=== PATIENT | female | born 1950 | race Caucasian/White ===

== ENCOUNTER → 2021-12-10 | Outpatient (CLI) | payer MEDICARE ==
--- NOTE | 2021-12-10 22:40 | MR ---
EXAMINATION TYPE: MR knee RT wo con DATE OF EXAM: 12/10/2021 COMPARISON: Outside right knee x-ray November 22, 2021 HISTORY: Right knee pain, locking and swelling. No injury TECHNIQUE: Multiplanar, multisequence imaging of the right knee is performed without IV contrast. FINDINGS: MEDIAL MENISCUS: Abnormal signal central body with fraying extends to articular surface. LATERAL MENISCUS: Anterior and posterior horns are intact without tear. CRUCIATE LIGAMENTS: The anterior and posterior cruciate ligaments are intact and unremarkable. COLLATERAL LIGAMENTS: The medial collateral ligament and lateral collateral ligament complex are inta ct. Abnormal fluid surrounds medial collateral ligament. EXTENSOR MECHANISM: Visualized quadriceps and patellar tendons are intact. EFFUSION: Small suprapatellar joint effusion. POPLITEAL CYST: Small popliteal/rosales cyst extends medially. TRICOMPARTMENT SPACES: [id number] tricompartment joint space loss and spurring. CARTILAGE: Thinning of articular cartilage medial tibiofemoral compartment. BONE MARROW SIGNAL: No focal abnormal marrow signal is appreciated. OTHER: No additional significant abnormality is appreciated. IMPRESSION: 1. Full-thickness tear medial meniscus centered at the central body. 2. Mild to moderate tricompartment degenerative changes as detailed above. 3. Grade 1 MCL sprain injury. 4. Small suprapatellar joint effusion. 5. Small popliteal cyst.
--- NOTE | 2021-12-11 08:16 | CT ---
EXAMINATION TYPE: CT abdomen w con DATE OF EXAM: 12/10/2021 COMPARISON: None HISTORY: ABD PAIN CT DLP: 669.7 mGycm CONTRAST: CT scan of the abdomen and pelvis is performed with Oral Contrast and with IV Contrast, patient injec deonte with 100 mL of Isovue 300. FINDINGS: LUNG BASES-: No visible nodule. No infiltrate. Small fixed hiatal hernia. LIVER/GB: No calcified gallstones. No space occupying hepatic lesion. Biliary tree is of normal ca liber. PANCREAS: No inflammation. No distinct mass. SPLEEN: No splenic enlargement. No lesion seen. ADRENALS: No nodule. No thickening. KIDNEYS/BLADDER: No hydronephrosis. No nephrolithiasis. Simple cyst left kidney measuring 3.6 cm. N o solid renal masses identified. Urinary bladder grossly unremarkable. BOWEL: The visualized gastrointestinal tract is of normal caliber. No inflammatory process seen. Post operative changes with surgical sutures seen about the mid small bowel. LYMPH NODES: No greater than 1cm abdominal or pelvic lymph nodes are appreciated. AORTA: No significant abnormality. OSSEOUS STRUCTURES: No significant abnormality is seen. OTHER: No significant additional abnormality is seen. IMPRESSION: 1. No significant abnormality to account for the patient's symptoms.
== END | disposition home or self-care (01) ==
LOC: RADMRIMAIN 16:12
PROVIDERS: ATTEND Orthopaedic Surgery
DX: S83.241A Other tear of medial meniscus, current injury, right knee, initial encounter (principal); M17.11 Unilateral primary osteoarthritis, right knee; S83.411A Sprain of medial collateral ligament of right knee, initial encounter; M71.21 Synovial cyst of popliteal space [Baker], right knee; R10.9 Unspecified abdominal pain
CPT/HCPCS: 74160; 36415; 73721; Q9967

== ENCOUNTER → 2021-12-10 | Outpatient (CLI) | payer MEDICARE | END | disposition home or self-care (01) | LOC: RADCTMAIN 16:11 | PROVIDERS: ATTEND Family Medicine | DX: R10.12 Left upper quadrant pain (principal) | CPT/HCPCS: 82565; 84520 ==

== ENCOUNTER 2022-12-26 14:20 | Observation (INO) | payer MEDICARE ==
--- NOTE | 2022-12-26 14:47 | ED ---
Chest Pain HPI - General Chief Complaint: Chest Pain Stated Complaint: Chest Pain Time Seen by Provider: 12/26/22 14:22 Source: patient, EMS, RN notes reviewed, old records reviewed Mode of arrival: EMS Limitations: no limitations - History of Present Illness Initial Comments: This is a 72-year-old female DF for evaluation chest pain chest pain is started around 1:00 today. Patient has no travel history sick contacts was told to come the emergency department if she ever had similar chest pain. Patient has had no prior cardiac evaluation no prior heart disease history. No high blood pressure cholesterol no diabetes nonsmoker. patient has no current fever cough or congestion. does have continued pain here in the er MD Complaint: chest pain -: hour(s) Onset: during rest, during exertion Pain Location: substernal, left chest Pain Radiation: none Severity: moderate Severity scale (1-10): 4 Quality: tightness, heaviness Consistency: intermittent Improves With: nothing Worsens With: nothing Treatments Prior to Arrival: none - Related Data Home Medications Medication Instructions Recorded Confirmed FLUoxetine HCL 40 mg PO DAILY 12/26/22 12/26/22 Omeprazole 20 mg PO DAILY 12/26/22 12/26/22 Pravastatin Sodium [Pravachol] 80 mg PO DAILY 12/26/22 12/26/22 Rivastigmine Tartrate [Exelon] 1.5 mg PO BID 12/26/22 12/26/22 Allergies Allergy/AdvReac Type Severity Reaction Status Date / Time ibuprofen Allergy Chest Pain Verified 12/26/22 15:31 Review of Systems ROS Statement: Those systems with pertinent positive or pertinent negative responses have been documented in the HPI. ROS Other: All systems not noted in ROS Statement are negative. EKG Findings - EKG Comments: EKG Findings:: Dizzy is bradycardia 47 ME 183 QRS 93 QTc 512 Past Medical History Additional Past Medical History / Comment(s): bowel issue - exploratory laparotomy performed. (1972) History of Any Multi-Drug Resistant Organisms: None Reported Additional Past Surgical History / Comment(s): (1972) Exploratory Laparotomy. No bowel removed. Smoking Status: Never smoker Past Alcohol Use History: None Reported Past Drug Use History: None Reported General Exam Limitations: no limitations General appearance: alert, in no apparent distress Head exam: Present: atraumatic, normocephalic, normal inspection Eye exam: Present: normal appearance, PERRL, EOMI. Absent: scleral icterus, conjunctival injection, periorbital swelling ENT exam: Present: normal exam, mucous membranes moist Neck exam: Present: normal inspection. Absent: tenderness, meningismus, lymphadenopathy Respiratory exam: Present: normal lung sounds bilaterally. Absent: respiratory distress, wheezes, rales, rhonchi, stridor Cardiovascular Exam: Present: regular rate, normal rhythm, normal heart sounds. Absent: systolic murmur, diastolic murmur, rubs, gallop, clicks GI/Abdominal exam: Present: soft, normal bowel sounds. Absent: distended, tenderness, guarding, rebound, rigid Extremities exam: Present: normal inspection, full ROM, normal capillary refill. Absent: tenderness, pedal edema, joint swelling, calf tenderness Back exam: Present: normal inspection Neurological exam: Present: alert, oriented X3, CN II-XII intact Psychiatric exam: Present: normal affect, normal mood Skin exam: Present: warm, dry, intact, normal color. Absent: rash Course Vital Signs 12/26/22 14:23 Temperature 97.0 F L Pulse Rate 47 L Respiratory 16 Rate Blood Pressure 134/92 O2 Sat by Pulse 97 Oximetry - Reevaluation(s) Reevaluation #1: 12/26/22 17:02 Medical record is reviewed Reevaluation #2: 12/26/22 17:02 Patient still with chest pain here in the ER Reevaluation #3: 12/26/22 17:02 Patient informed of results questions answered Reevaluation #4: 12/26/22 17:02 Was pt. sent in by a medical professional or institution? @ -no Did you speak to anyone other than the patient for history? @ -no Did you review nursing and triage notes? @ -agree Were old charts reviewed? @ -no Differential Diagnosis? @ -prior EKG interpreted by me (3pts min.)? @ -yes X-rays interpreted by me (1pt min.)? @ -yes CT interpreted by me (1pt min.)? @ -no U/S interpreted by me (1pt. min.)? @ -no What testing was considered but not performed? (CT, X-rays, U/S, labs)? Why? @ -no What meds were considered but not given? Why? @ -no Did you discuss the management of the patient with other professionals? @ -no Did you reconcile home meds? @ -no Was smoking cessation discussed for >3mins.? @ -no Was critical care preformed (if so, how long)? @ -no Were there social determinants of health that impacted care today? How? (Homelessness, low income, unemployed, alcoholism, drug addiction, transportation, low edu. Level, literacy, decrease access to med. care, nursing home, rehab)? @ -no Was there de-escalation of care discussed even if they declined? (Discuss DNR or withdrawal of care, Hospice)? @ -no What co-morbidities impacted this encounter? (DM, HTN, Smoking, COPD, CAD, Cancer, CVA, Hep., AIDS, mental health diagnosis, sleep apnea, morbid obesity)? @ -none Was patient admitted / discharged? @ -dc Undiagnosed new problem with uncertain prognosis? @ -no Drug Therapy requiring intensive monitoring for toxicity (Heparin, Nitro, Insulin, Cardizem)? @ -no Were any procedures done? @ -no Diagnosis/symptom? @ -] Acute, or Chronic, or Acute on Chronic? @ -no Uncomplicated (without systemic symptoms) or Complicated (systemic symptoms)? @ -uncomplicated Side effects of treatment? @ -no Exacerbation, Progression, or Severe Exacerbation] @ -no Poses a threat to life or bodily function? @ -no Reevaluation #5: 12/26/22 17:02 Differential Chest Pain: Stable Angina, Unstable Angina, STEMI, NSTEMI Aortic Dissection, Pneumothorax, Musculoskeletal, Esophageal Spasm GERD, Cholecystitis, Pancreatitis, Zoster, this is not meant to be an all-inclusive list. - Consultations Consultation #1: spoke w sound and good for admission Chest Pain MDM - MDM 72 female to the Er for evaluation chest pain, patient will be admitted for chest pain observation and for cardiology to see and treat Disposition Clinical Impression: Chest pain Disposition: ADMITTED IP TO THIS HOSP Condition: Undetermined Is patient prescribed a controlled substance at d/c from ED?: No Referrals: Mirna Burgos MD [Primary Care Provider] - 1-2 days Time of Disposition: 17:00
--- NOTE | 2022-12-26 15:16 | XR ---
EXAMINATION TYPE: XR chest 2V DATE OF EXAM: 12/26/2022 COMPARISON: None HISTORY: 72 year-old female chest pain and weakness TECHNIQUE: PA and lateral views FINDINGS: Heart upper limits of normal in size. Tortuous/ectatic thoracic aorta. 8 mm nodule lateral right apex . Some stringy atelectasis in the lower lungs. Hyperinflation. Otherwise, no consolidation or pleural effusion. IMPRESSION: 1. COPD and borderline heart size. 2. Ectatic/tortuous thoracic aorta. 3. Possible underlying 8 mm pulmonary nodule at the lateral right apex. Nonemergent follow-up CT ches t to exclude a suspicious pulmonary nodule.
[2022-12-26 15:21] LABS: Basophils % (A) 0 %; Eosinophils # (A) 0.1 k/uL (0-0.7); Eosinophils % (A) 2 %; HCT 40.1 % (34.0-46.0); HGB 13.3 gm/dL (11.4-16.0); Lymphocytes # (A) 1.7 k/uL (1.0-4.8); Lymphocytes % (A) 28 %; MCH 29.1 pg (25.0-35.0); MCHC 33.2 g/dL (31.0-37.0); MCV 87.9 fL (80.0-100.0); Mean Platelet Volume 7.6; Monocytes # (A) 0.2 k/uL (0-1.0); Monocytes % (A) 4 %; Neutrophils # (A) 3.9 k/uL (1.3-7.7); Neutrophils % (A) 63 %; Platelet Count 270 k/uL (150-450); RBC 4.57 m/uL (3.80-5.40); RDW 13.5 % (11.5-15.5); WBC 6.1 k/uL (3.8-10.6)
[2022-12-26 15:22] LABS: ALT 13 U/L (4-34); AST 21 U/L (14-36); African American GFR (CKD) >90 (>60 ml/min/1.73 sqM); Albumin 4.2 g/dL (3.5-5.0); Alkaline Phosphatase 81 U/L (38-126); Anion Gap 9 mmol/L; Blood Urea Nitrogen 16 mg/dL (7-17); Calcium 8.7 mg/dL (8.4-10.2); Carbon Dioxide 24 mmol/L (22-30); Chloride 102 mmol/L (98-107); Glucose 87 mg/dL (74-99); Magnesium 2.1 mg/dL (1.6-2.3); Non-African American GFR(CKD) 84 (>60 ml/min/1.73 sqM); Phosphorus 3.7 mg/dL (2.5-4.5); Potassium 4.4 mmol/L (3.5-5.1); Sodium 135 mmol/L (137-145); Total Bilirubin 0.7 mg/dL (0.2-1.3); Total Protein 7.1 g/dL (6.3-8.2)
[2022-12-26 15:55] LABS: Partial Thromboplastin Time 24.3 sec (22.0-30.0); Prothrombin Time 10.3 sec (9.0-12.0)
[2022-12-26] MEDS ORDERED: ONDANSETRON 4 MG/2 ML VIAL IVP PRN (17:00)
[2022-12-26] MEDS ORDERED: MORPHINE SULFATE 4 MG/ML SYRINGE IV PRN (17:00)
[2022-12-26] MEDS ORDERED: NALOXONE 0.4 MG/ML 1 ML VIAL IV PRN (17:00)
[2022-12-26] MEDS ORDERED: DONEPEZIL 10 MG TAB PO SCH (21:00)
[2022-12-26] MEDS ORDERED: DONEPEZIL 5 MG TAB PO SCH (21:00)
--- NOTE | 2022-12-27 01:20 | P.HPIM ---
History of Present Illness H&P Date: 12/26/22 Chief Complaint: chest pain 72 year old female with no significant past medical history patient experienced sudden onset chest pain today , described as pressure heavy sensation central chest 4/10 in severity , non radiating associated with some dizziness. no associated nausea, vomiting, SOB, or profuse sweating. no injury to the chest , no recent travel or hospital stay , no cardiac history , no history of blood clots. no URI symptoms, no known sick contacts. denies tobacco smoking or illicit drugs , denies heavy alcohol consumption Review of Systems Pertinent positives as noted in HPI. All other systems were reviewed and are negative Past Medical History Additional Past Medical History / Comment(s): bowel issue - exploratory laparotomy performed. (1972) states 1 and a c-sections repair, and hernia fixed History of Any Multi-Drug Resistant Organisms: None Reported Additional Past Surgical History / Comment(s): (1972) Exploratory Laparotomy. No bowel removed. Smoking Status: Never smoker Past Alcohol Use History: None Reported Past Drug Use History: None Reported Medications and Allergies Home Medications Medication Instructions Recorded Confirmed Type FLUoxetine HCL 40 mg PO DAILY 12/26/22 12/26/22 History Omeprazole 20 mg PO DAILY 12/26/22 12/26/22 History Pravastatin Sodium [Pravachol] 80 mg PO DAILY 12/26/22 12/26/22 History Rivastigmine Tartrate [Exelon] 1.5 mg PO BID 12/26/22 12/26/22 History Allergies Allergy/AdvReac Type Severity Reaction Status Date / Time ibuprofen Allergy Chest Pain Verified 12/26/22 15:31 Physical Exam Vitals: Vital Signs Temp Pulse Resp BP Pulse Ox 12/26/22 18:38 98.2 F 55 L 18 148/96 97 12/26/22 14:23 97.0 F L 47 L 16 134/92 97 Intake and Output 12/26/22 12/26/22 12/26/22 06:59 14:59 22:59 Other: Weight 70.307 kg 70.307 kg Constitutional: No acute distress, conversant, pleasant Eyes: Anicteric sclerae, moist conjunctiva, Pupils equal round reactive to light ENMT: NC/AT Oropharynx clear, no erythema, or exudates Neck: Supple, no masses, or JVD No carotid bruits No thyromegaly Lungs: Clear to auscultation Clear to percussion Normal respiratory effort, no accessory muscle use Cardiovascular: Heart regular in rate and rhythm, No murmurs, gallops, or rubs No peripheral edema Abdominal: Soft Nontender, no guarding, rebound or rigidity Abdomen moving with respiration Normoactive bowel sounds No hepatomegaly, No splenomegaly No palpable mass No abdominal wall hernia noted Skin: Normal temperature, tone, texture, turgor No induration No subcutaneous nodules No rash, lesions No ulcers Extremities: No digital cyanosis No clubbing Pedal pulses intact and symmetrical Radial pulses intact and symmetrical No calf tenderness Psychiatric: Alert and oriented to person, place and time Appropriate affect Neuro Muscles Strength 5/5 in all 4 extremities Sensation to light touch grossly present throughout Cranial nerves II-XII grossly intact Lymphatics: no palpable cervical or supraclavicular lymph nodes Results CBC & Chem 7: 12/26/22 14:49 12/26/22 14:49 Labs: Abnormal Lab Results - Last 24 Hours (Table) 12/26/22 Range/Units 14:49 Sodium 135 L (137-145) mmol/L Thrombosis Risk Factor Assmnt - Choose All That Apply Each Factor Represents 1 point: Obesity (BMI >25) Each Risk Factor Represents 2 Points: Age 61-74 years Thrombosis Risk Factor Assessment Total Risk Factor Score: 3 Thrombosis Risk Factor Assessment Level: Moderate Risk Assessment and Plan Assessment: 72 year old female with no significant past medical history , presented with sudden onset chest pain , I discussed the case with ED doc, patient EKG shows diffuse T wave inversions, I accepted the admission for cardiac workup with anticipated length of stay < 2 midnights atypical chest pain EKG showing diffuse T wave inversion trops negative patient allergic to NSAIDs , no aspirin given pain control with nitro PRN morphine PRN for pain control cardiology consult trend trops check lipid panel , and TSH monitor vital signs finance director blood work reviewed , unremarkable Hgb 13.3 , WBC 6.1 , Na 135, K 4.1 , BN 16 , cr 0.72 full code DVT PPX heparin sc tid 5000 units
[2022-12-27] MEDS ORDERED: HEPARIN SODIUM,PORCINE 10,000 UNIT in SODIUM CHLORIDE 0.9% 1,000 ML IRRIGATION PRN (07:00)
[2022-12-27] MEDS ORDERED: HEPARIN SODIUM,PORCINE 2,500 UNIT in SODIUM CHLORIDE 0.9% 250 ML IRRIGATION PRN (07:00)
[2022-12-27] MEDS ORDERED: PRAVASTATIN SODIUM 80 MG TAB PO SCH (09:00)
[2022-12-27] MEDS ORDERED: PANTOPRAZOLE 40 MG TABLET PO SCH (09:00)
[2022-12-27] MEDS ORDERED: FLUoxetine HCL 20 MG CAP PO SCH (09:00)
[2022-12-27 11:08] LABS: Chol/HDL Ratio 2.13 Ratio; LDL Cholesterol,Calculated 70.1 mg/dL (0.0-131.0); VLDL Calculation 15.98 mg/dL (5.00-40.00)
[2022-12-27] MEDS ORDERED: ALPRAZolam 0.25 MG TAB PO PRN (11:31)
[2022-12-27] MEDS ORDERED: NITROGLYCERIN SL TABS 0.4 MG TAB SUBLINGUAL PRN (11:31)
[2022-12-27] MEDS ORDERED: ASPIRIN 325 MG TAB PO STA (11:31)
[2022-12-27] MEDS ORDERED: ATORVASTATIN 80 MG TAB PO STA (11:31)
[2022-12-27] MEDS ORDERED: ALPRAZolam 0.5 MG TAB PO PRN (11:31)
[2022-12-27] MEDS ORDERED: VERAPAMIL 2.5 MG/ML 2 ML AMP ONE (11:50)
[2022-12-27] MEDS ORDERED: HEPARIN SODIUM 1,000 UN/ML (10ML VL) ONE (11:50)
[2022-12-27] MEDS ORDERED: fentaNYL (PF) 50 MCG/ML 2 ML AMP ONE (11:50)
[2022-12-27] MEDS ORDERED: SODIUM CHLORIDE 0.9% 1,000 ML IV ONE (12:07)
[2022-12-27] MEDS ORDERED: fentaNYL (PF) 50 MCG/ML 2 ML AMP IV ONE (12:12)
[2022-12-27] MEDS ORDERED: LIDOCAINE 1% INJ 10MG/ML (5 ML VIAL-PF) SQ ONE (12:16)
[2022-12-27] MEDS ORDERED: HEPARIN SODIUM 1,000 UN/ML (10ML VL) IV ONE (12:22)
[2022-12-27] MEDS ORDERED: IOPAMIDOL-250 100ML BTL INTRAARTER ONE (12:29)
[2022-12-27] MEDS ORDERED: RX INFO: IV CONTRAST WAS GIVEN 1 EACH MISC MISCELLANE PRN (12:34)
[2022-12-27] MEDS ORDERED: ONDANSETRON 4 MG/2 ML VIAL ONE (12:39)
[2022-12-27] MEDS ORDERED: ONDANSETRON 4 MG/2 ML VIAL IVP ONE (12:40)
--- NOTE | 2022-12-27 12:40 | P.CARDCATH ---
Date of Procedure: 12/27/22 Description of Procedure: Cardiac Catheterization: The patient is a 72-year-old female who presented with symptoms of chest discomfort and an abnormal EKG. She had no enzymatic changes. She was evaluated by Dr. Vazquez Recommendations were made regarding cardiac catheterization, the risks and the complications were discussed with the patient who is in full understanding and agreement. Procedure Description: Patient was brought to biological lab technician in fasting semi-sedated state after receiving Fentanyl and Benadryl achieiving moderate conscious sedated state. Using Xylocaine Anesthesia and Seldinger technique, a 6-Cambodian sheath was introduced in the right radial artery . Subsequently, selective coronary angiography was performed using a 5-Cambodian 3.5 bend Chin catheter. Multiple views of the coronary artery including hemiaxial views were obtained. The 5-Cambodian pigtail catheter was used to cross the aortic valve and LVEDP was calculated. Following that, catheter and sheath were removed. Hemostasis was obtained with deployment of TR band . There was no immediate complication. Patient was returned to room in stable condition. Of note, the patient received a total of 3500 units of intravenous heparin as well as intra-arterial verapamil. Findings: Left main: This is a large size vessel, bifurcating into LAD and left circumflex, left main has no high-grade stenosis LAD: This is a large size vessel, giving rise to a large proximal diagonal branch, reaching to the inferoapical wall. The mid LAD has mild 10-20% plaque with no progression since 2012 Left circumflex: This is a nondominant vessel, large in caliber, giving rise to a large obtuse marginal branch that has no evidence of high-grade stenosis RCA: This is a nondominant vessel, moderate caliber giving rise to a right PDA that has no evidence of high-grade stenosis Left Ventriculogram: Not performed Hemodynamics: There was no gradient across the aortic valve , LVEDP was 8-10 mmHg Conclusion: 1. Mild disease in the mid LAD 2. No obstructive disease in the RCA and left circumflex 3. Right dominance 4. Normal LVEDP Recommendations: In view of the findings I have recommended to continue medical therapy with coronary risks modifications. The findings and the recommendations were discussed with the patient and she was in full understanding and agreement. Duration of sedation is 15 minutes.
[2022-12-27] MEDS ORDERED: SODIUM CHLORIDE 0.9% 1,000 ML IV SCH (12:45)
--- NOTE | 2022-12-27 13:33 | P.PN ---
Subjective Progress Note Date: 12/27/22 Hospital Course: 72-year-old female with history of GERD, dyslipidemia depression and dementia presenting with chest pain. EKG on admission showed diffuse T-wave inversions. Hemoglobin 13.3, WBC 6.1, sodium 135, creatinine 0.72. Chest pain has now resolved. Cardiology consulted. Troponin has been negative. Subjective: Patient seen and examined at bedside. No acute events overnight. Denies any further chest pain. Pertinent positives and negatives as discussed above, a complete review of systems was performed and all other systems are negative. Vitals Signs Reviewed. General: nontoxic, no distress, appears at stated age Derm: warm, dry Head: atraumatic, normocephalic, symmetric Eyes: EOMI, no lid lag, anicteric sclera Mouth: no lip lesion, mucus membranes moist Cardiovascular: S1S2 reg, no murmur Lungs: CTA bilateral, no rhonchi, no rales , no accessory muscle use Abdominal: soft, nontender to palpation, no guarding, no appreciable organomegaly Ext: no gross muscle atrophy, no edema, no contractures Neuro: CN II-XI grossly intact, no focal neuro deficits Psych: Alert, oriented, appropriate affect Data Reviewed Today: Pertinent Labs: Troponin negative 3 Assessment and Plan: Atypical chest pain, rule out ACS Mild coronary artery disease Depression Dementia/GERD -Catheterization report reviewed, mild disease in the mid LAD, no obstructive disease and RCA and left circumflex, normal LVEDP. -Continue aspirin and statin daily -Pending echocardiogram -A1c pending DVT ppx: subq heparin Code status: full code Anticipated discharge place: Pending clinical course Anticipated discharge time: pending clinical course Objective - Vital Signs Vital signs: Vital Signs Temp 97.9 F 12/27/22 13:00 Pulse 58 L 12/27/22 13:00 Resp 16 12/27/22 13:00 BP 142/78 12/27/22 13:00 Pulse Ox 95 12/27/22 13:00 FiO2 Intake & Output 12/26/22 12/27/22 12/27/22 18:59 06:59 18:59 Intake Total 100 Balance 100 Weight 70.307 kg 70.307 kg Intake: IV 100 Other: # Voids 1 - Labs CBC & Chem 7: 12/26/22 14:49 12/26/22 14:49 Labs: Abnormal Lab Results - Last 24 Hours (Table) 12/26/22 12/26/22 Range/Units 14:49 14:49 Sodium 135 L (137-145) mmol/L HDL Cholesterol 75.90 H (40.00-60.00) mg/dL
--- NOTE | 2022-12-27 13:53 | CA ---
Transthoracic Echo Report Name: Linda Schaefer Age: 72 Gender: F : 1950 Exam Date: 12/27/2022 13:26 Exam Location: [facility] Ht (in): 61 Wt (lb): 155 Ordering Physician: Jose Vazquez MD ([id number]) Attending/Referring Phys: George RODRIGES Hand Winder Tari Cabrera RDCS Procedure CPT: Indications: LVF Cardiac Hx: Technical Quality: Good Contrast 1: Total Dose (mL): Contrast 2: Total Dose (mL): MEASUREMENTS (Male / Female) Normal Values 2D ECHO LV Diastolic Diameter PLAX 5.0 cm 4.2 - 5.9 / 3.9 - 5.3 cm LV Systolic Diameter PLAX 3.2 cm IVS Diastolic Thickness 1.3 cm 0.6 - 1.0 / 0.6 - 0.9 cm LVPW Diastolic Thickness 1.2 cm 0.6 - 1.0 / 0.6 - 0.9 cm LV Relative Wall Thickness 0.5 RV Internal Dim ED PLAX 3.1 cm LA Systolic Diameter LX 4.2 cm 3.0 - 4.0 / 2.7 - 3.8 cm LA Volume 46.4 cm??? 18 - 58 / 22 - 52 cm??? M-MODE Aortic Root Diameter MM 3.1 cm MV E Point Septal Separation 0.4 cm AV Cusp Separation MM 2.5 cm DOPPLER AV Peak Velocity 131.0 cm/s AV Peak Gradient 6.9 mmHg MV Area PHT 3.1 cm??? Mitral E Point Velocity 77.3 cm/s Mitral A Point Velocity 73.0 cm/s Mitral E to A Ratio 1.1 MV Deceleration Time 244.8 ms MV E' Velocity 6.1 cm/s Mitral E to MV E' Ratio 12.7 FINDINGS Left Ventricle Left ventricular ejection fraction is estimated at 55-60 %. Left ventricular cavity size normal. Mild concentric left ventricular hypertrophy. Right Ventricle Normal right ventricular size and function. Unable to estimate the right ventricular systolic pressure. Right Atrium Normal right atrial size. Left Atrium Normal left atrial size. Mitral Valve Mitral valve thickened. Mild mitral annular calcification. Aortic Valve Trileaflet aortic valve. No aortic valve stenosis or regurgitation. Tricuspid Valve Structurally normal tricuspid valve. No tricuspid regurgitation. Pulmonic Valve Structurally normal pulmonic valve. No pulmonic regurgitation. Pericardium Normal pericardium. No pericardial effusion. Aorta Normal size aortic root and proximal ascending aorta. CONCLUSIONS Mild concentric left ventricular hypertrophy with normal LV systolic function Previewed by: Dr. Jose Vazquez MD (Electronically Signed) Final Date: 27 Dec 2022 13:53
--- NOTE | 2022-12-27 14:19 | CONS ---
CONSULTATION CHIEF COMPLAINT: Chest pain. HISTORY OF PRESENT ILLNESS: Linda is a 72-year-old lady, with history of dyslipidemia, who presented to hospital complaining of chest pain. She states that she was sitting on the porch and suddenly started having precordial chest pressure on the left side with left arm radiation. She looked somewhat pale and diaphoretic. EMS was called and she was brought to the emergency room where she had an EKG that revealed sinus rhythm with ST-T wave changes suggestive of lateral wall ischemia and had 3 sets of troponins that have all been negative. Her lipid profile shows an LDL cholesterol of 70. At the time of my evaluation this morning, she appears comfortable at rest and is free of symptoms. Given the significant EKG changes and chest discomfort suggestive of unstable angina, I advised the patient to undergo cardiac catheterization for further evaluation. She had been explained of risks, benefits, and alternatives - understood and accepted. PAST MEDICAL HISTORY: Significant for dyslipidemia. CURRENT MEDICATIONS: Include: 1. Pravachol. 2. Exelon. 3. Omeprazole. 4. Fluoxetine. ALLERGIES: Allergic to ibuprofen. FAMILY HISTORY: Negative for premature coronary artery disease. SOCIAL HISTORY: Negative for smoking, EtOH abuse, or drug abuse. REVIEW OF SYSTEMS: review of systems has been performed. Pertinent are as documented. PHYSICAL EXAMINATION: VITAL SIGNS: The patient is afebrile. Heart rate is 50 beats per minute. Blood pressure is 140/82. Respiratory rate 16. O2 saturation 96% on room air. NECK: There is no jugular venous distention. Carotid upstroke is normal. There is no bruit. CHEST: Exam reveals good air entry bilaterally. HEART: Exam reveals first and second heart sounds. No gallop. No murmur. ABDOMEN: Soft, nontender. EXTREMITIES: Did not reveal any edema. Peripheral pulses are felt. LABORATORY DATA: Labs show that the hemoglobin is 13.3, platelet count is 270, creatinine 0.7, potassium is 4.4. Troponins are negative. ASSESSMENT AND PLAN: Unstable angina. PLAN: The patient will undergo cardiac catheterization by Dr. Mckeon who sees her regularly. MMODL / IJN: [id number] /
--- NOTE | 2022-12-27 16:50 | P.DS ---
Providers Date of admission: 12/26/22 17:00 Expected date of discharge: 12/27/22 Attending physician: Marlene Sandoval MD Consults: 12/26/22 17:00 Consult Physician Routine Consulting Provider: Jose Mckeon Consult Reason/Comments: cp Do you want consulting provider notified?: Yes Primary care physician: [facility] Course: Discharge Diagnosis: Atypical chest pain Mild coronary artery disease Depression Dementia/GERD Hospital Course: 72-year-old female with history of GERD, dyslipidemia depression and dementia presenting with chest pain. EKG on admission showed diffuse T-wave inversions. Hemoglobin 13.3, WBC 6.1, sodium 135, creatinine 0.72. Chest pain has now resolved. Cardiology consulted. Troponin has been negative. Catheterization shows mild disease in the mid LAD, no obstructive disease and RCA and left circumflex, normal LVEDP. She is on aspirin and statin. Echocardiogram showed LVEF 55-60%. Patient seen and examined at bedside. Vital signs reviewed and stable. General: nontoxic, no distress, appears at stated age Derm: warm, dry Head: atraumatic, normocephalic, symmetric Eyes: EOMI, no lid lag, anicteric sclera Mouth: no lip lesion, mucus membranes moist Cardiovascular: S1S2 reg, no murmur Lungs: CTA bilateral, no rhonchi, no rales , no accessory muscle use Abdominal: soft, nontender to palpation, no guarding, no appreciable organomegaly Ext: no gross muscle atrophy, no edema, no contractures Neuro: CN II-XI grossly intact, no focal neuro deficits Psych: Alert, oriented, appropriate affect A total of 33 minutes of time were spent preparing this complex discharge summary. Patient was discharged on 12/27/22 at 16:49. Patient Condition at Discharge: Stable Plan - Discharge Summary New Discharge Prescriptions: New Aspirin 81 mg PO DAILY #90 tab Continue Omeprazole 20 mg PO DAILY FLUoxetine HCL 40 mg PO DAILY Rivastigmine Tartrate [Exelon] 1.5 mg PO BID Pravastatin Sodium [Pravachol] 80 mg PO DAILY Discharge Medication List FLUoxetine HCL 40 mg PO DAILY 12/26/22 [History] Omeprazole 20 mg PO DAILY 12/26/22 [History] Pravastatin Sodium [Pravachol] 80 mg PO DAILY 12/26/22 [History] Rivastigmine Tartrate [Exelon] 1.5 mg PO BID 12/26/22 [History] Aspirin 81 mg PO DAILY #90 tab 12/27/22 [Rx] Follow up Appointment(s)/Referral(s): Jose Mckeon MD [STAFF PHYSICIAN] - 2 Weeks Mirna Burgos MD [Primary Care Provider] - 1-2 days Patient Instructions/Handouts: Chest Pain (DC), Noncardiac Chest Pain (DC) Activity/Diet/Wound Care/Special Instructions: Please see PCP and cardiology. Discharge Disposition: HOME SELF-CARE
[2022-12-27 18:51] VITALS: BP 163/89; PULSE 69; RESP 18; TEMP 97.7
[2022-12-27] MEDS ORDERED: ONDANSETRON 4 MG/2 ML VIAL IVP STA (19:19)
[2022-12-27] MEDS ORDERED: ONDANSETRON 4 MG TAB PO STA (19:20)
[2022-12-28] MEDS ORDERED: ASPIRIN 81 MG PO SCH (09:00)
== END 2022-12-27 21:07 | disposition home or self-care (01) ==
LOC: EC 14:20 → 6NMEDSUR 17:00
PROVIDERS: ADMIT Internal Medicine; ATTEND Internal Medicine
DX: I25.110 Atherosclerotic heart disease of native coronary artery with unstable angina pectoris (principal); I10 Essential (primary) hypertension; F32.A Depression, unspecified; F03.90 Unspecified dementia, unspecified severity, without behavioral disturbance, psychotic disturbance, mood disturbance, and anxiety; K21.9 Gastro-esophageal reflux disease without esophagitis; E78.5 Hyperlipidemia, unspecified; Z98.890 Other specified postprocedural states; E66.9 Obesity, unspecified; Z68.29 Body mass index [BMI] 29.0-29.9, adult; Z79.899 Other long term (current) drug therapy; Z88.6 Allergy status to analgesic agent
CPT/HCPCS: 96374; 99285; 36415; 93005; 93306; 93458; 83880; 80061; 80053; 84443; 83605; 83735; 84100; 84484; 85025; 85610; 85730; 83036; 71046; G0378 ×2; C1769; C1894; J2270; J2405; J2001; J3010; J1644; Q9966

== ENCOUNTER → 2024-02-16 | Outpatient (CLI) | payer MEDICARE ==
[2024-02-16 15:10] LABS: African American GFR (CKD) 90 (>60 ml/min/1.73 sqM); Blood Urea Nitrogen 22 mg/dL (7-17); Non-African American GFR(CKD) 78 (>60 ml/min/1.73 sqM)
--- NOTE | 2024-02-16 15:46 | CT ---
EXAMINATION TYPE: CT chest w con CT DLP: 221.6 mGycm, Automated exposure control for dose reduction was used. DATE OF EXAM: 02/16/2024 3:30 PM COMPARISON: Chest radiograph from 12/26/2022, CT abdomen 12/10/2021 CLINICAL INDICATION:Female, 73 years old with history of R91.1 Pulmonary nodule; PHH, lung nodule f/u TECHNIQUE: Multiple axial images were obtained through the chest following the administration of 100 cc of Isovue 300. . Coronal and sagittal reformats reviewed. FINDINGS: LUNGS/ PLEURA: No pleural effusion, pneumothorax, or focal consolidation. Linear scarring and/or atel ectasis within the lingula. Several scattered small pulmonary nodules identified. Examples include a lateral right upper lobe 3 mm pulmonary nodule (series 4, image 10), superior segment right lower lo be 2 mm pulmonary nodule (series 4, image 22), right lower lobe 2.6 mm pulmonary nodule (series 4, im age 26), left lower lobe 2.4 mm pulmonary nodule (series 4, image 41), left lower lobe 4.5 mm pulmona ry nodule (series 4, image 39), left lower lobe 3.6 mm pulmonary nodule (series 4, image 38), lateral left upper lobe 3.4 mm pulmonary nodule (series 4, image 22), and anterior left upper lobe 2.8 mm pu lmonary nodule (series 4, image 16). AIRWAY: Patent and unremarkable.. HEART: Mildly enlarged. No pericardial effusion. MEDIASTINUM: No evidence of adenopathy. VASCULATURE: No aortic aneurysm. Dilated main pulmonary artery measuring up to 3.9 cm. MUSCULOSKELETAL: No acute osseous abnormalities. Mild dextrocurvature of the thoracic spine. Multilev el degenerative disc disease with multilevel anterior osteophytosis. Multilevel Schmorl's nodes. No a ggressive osseous lesion. SOFT TISSUES/LYMPH NODES: Unremarkable. LOWER NECK: Thyroid gland is surgically absent versus atrophic.. UPPER ABDOMEN: Subcentimeter hypodense focus is redemonstrated within the liver. Too small to accurat daphney characterize but likely represents a cyst. Small hiatal hernia. IMPRESSION: 1. Several scattered pulmonary nodules measuring less than 5 mm. In a high-risk patient consider opti onal CT chest in 12 months. In a low-risk patient no follow-up is recommended. 2. Dilated main pulmonary artery which can be seen in setting of pulmonary arterial hypertension.
== END | disposition home or self-care (01) ==
LOC: RADCTMAIN 14:18
PROVIDERS: ATTEND Family Medicine
DX: R91.8 Other nonspecific abnormal finding of lung field (principal); I28.8 Other diseases of pulmonary vessels
CPT/HCPCS: 82565; 84520; 71260; 36415; Q9967

== ENCOUNTER 2024-04-27 23:30 | Emergency (ER) | payer MEDICARE ==
[2024-04-28] MEDS: LIDOCAINE 1% INJ 10MG/ML (20 ML MDV) SQ ONE (00:08)
--- NOTE | 2024-04-28 00:15 | ED ---
Skin/Abscess/FB HPI - General Chief complaint: Skin/Abscess/Foreign Body Stated complaint: Skin Abscess Time Seen by Provider: 04/28/24 00:13 Source: patient, RN notes reviewed Mode of arrival: ambulatory Limitations: no limitations - History of Present Illness Initial comments: 73-year-old female presented to the ER with a chief complaint of a labial a bscess. Patient states that she has a history of these. She has not had 1 in many years. She states she noticed it today and is extremely painful. Tender to touch. No fevers or chills. No other complaints. - Related Data Home Medications Medication Instructions Recorded Confirmed FLUoxetine HCL 40 mg PO DAILY 12/26/22 12/26/22 Omeprazole 20 mg PO DAILY 12/26/22 12/26/22 Pravastatin Sodium [Pravachol] 80 mg PO DAILY 12/26/22 12/26/22 Rivastigmine Tartrate [Exelon] 1.5 mg PO BID 12/26/22 12/26/22 Previous Rx's Medication Instructions Recorded Aspirin 81 mg PO DAILY #90 tab 12/27/22 Amoxic-Pot Clav 875-125Mg 1 tab PO Q12HR #20 tab 04/28/24 [Augmentin 875-125] Sulfamethox-Tmp 800-160Mg [Bactrim 1 each PO Q12HR #20 tab 04/28/24 Ds] Allergies Allergy/AdvReac Type Severity Reaction Status Date / Time ibuprofen Allergy Chest Pain Verified 04/27/24 23:44 Review of Systems ROS Statement: Those systems with pertinent positive or pertinent negative responses have been documented in the HPI. ROS Other: All systems not noted in ROS Statement are negative. Past Medical History Additional Past Medical History / Comment(s): bowel issue - exploratory laparotomy performed. (1972) History of Any Multi-Drug Resistant Organisms: None Reported Additional Past Surgical History / Comment(s): (1972) Exploratory Laparotomy. No bowel removed. Smoking Status: Never smoker Past Alcohol Use History: None Reported Past Drug Use History: None Reported General Exam Limitations: no limitations General appearance: alert, in no apparent distress Respiratory exam: Present: normal lung sounds bilaterally. Absent: respiratory distress, wheezes, rales, rhonchi, stridor Cardiovascular Exam: Present: regular rate, normal rhythm, normal heart sounds. Absent: systolic murmur, diastolic murmur, rubs, gallop, clicks External exam: Present: other (1 inch by half inch area of fluctuance to left of left labia majoria. overlying erythema) Neurological exam: Present: alert, oriented X3, CN II-XII intact Skin exam: Present: warm, dry, intact, normal color. Absent: rash Course Vital Signs 04/27/24 04/28/24 23:42 01:43 Temperature 98.2 F 98.1 F Pulse Rate 62 68 Respiratory 24 22 Rate Blood Pressure 147/80 121/78 O2 Sat by Pulse 98 98 Oximetry Procedures - Incision & Drainage Consent Obtained: verbal consent Indication: abscess Site: vulva/vagina Size (cm): 1 Anesthetic Used: lidocaine 1%, without epi Amount (mLs): 3 I&D Cleaning Method: Alcohol Wipe Sterile Field Used?: Yes Scalpel Used: #11 Ultrasound used: No Needle Aspiration Performed?: Yes Irrigation Performed?: No I&D Drainage Obtained: Pus, Blood Loculation Noted: probing needed to break Insertion of drain: No Culture Obtained?: No Patient Tolerated Procedure: well Medical Decision Making - Medical Decision Making Was pt. sent in by a medical professional or institution (Dr. PA, DISTANCE EDUCATION FACULTY LIAISON, urgent care, hospital, or fci...) When possible be specific @ -No Did you speak to anyone other than the patient for history (EMS, parent, family, police, friend...)? What history was obtained from this source @ -No Did you review nursing and triage notes (agree or disagree)? Why? @ -I reviewed and agree with nursing and triage notes Were old charts reviewed (outside hosp., previous admission, EMS record, old EKG, old radiological studies, urgent care reports/EKG's, fci records)? Report findings @ -No old charts were reviewed Differential Diagnosis (chest pain, altered mental status, abdominal pain women, abdominal pain men, vaginal bleeding, weakness, fever, dyspnea, syncope, headache, dizziness, GI bleed, back pain, seizure, CVA, palpatations, mental health, musculoskeletal)? @ -bartholian cyst, abscess, fistula This list is not meant to be all- inclusive EKG interpreted by me (3pts min.). @ -None done X-rays interpreted by me (1pt min.). @ -None done CT interpreted by me (1pt min.). @ -None done U/S interpreted by me (1pt. min.). @ -None done What testing was considered but not performed or refused? (CT, X-rays, U/S, labs)? Why? @ -None What meds were considered but not given or refused? Why? @ -None Did you discuss the management of the patient with other professionals (professionals i.e. Dr., PA, [employer]ANCE EDUCATION [employer]ACULTY LIAISON, lab, RT, psych nurse, psychiatric social worker supervisor, civil clerk, teacher, civil preparedness officer, counseling case manager)? Give summary @ -No Was smoking cessation discussed for >3mins.? @ -No Was critical care preformed (if so, how long)? @ -No Were there social determinants of health that impacted care today? How? (Homelessness, low income, unemployed, alcoholism, drug addiction, transportation, low edu. Level, literacy, decrease access to med. care, halfway, rehab)? @ -No Was there de-escalation of care discussed even if they declined (Discuss DNR or withdrawal of care, Hospice)? DNR status @ -No What co-morbidities impacted this encounter? (DM, HTN, Smoking, COPD, CAD, Cancer, CVA, ARF, Chemo, Hep., AIDS, mental health diagnosis, sleep apnea, morbid obesity)? @ -None Was patient admitted / discharged? Hospital course, mention meds given and route, prescriptions, significant lab abnormalities, going to OR and other pertinent info. @ -Discharge. 73-year-old female presenting to the ER with a chief complaint of an abscess. History and physical exam completed. Vitals within normal limits. Exam remarkable for a 1 cm x 0.5 cm fluctuant area left of left labia majora. I&D performed with purulent material present. Area believed to be a complication of an ingrown hair. Patient will be started on Bactrim and Keflex for infection prophylaxis first dose in the ER. Advise close follow-up PCP. Strict return parameters discussed. Patient discharged stable condition. Patient verbally expressed understanding agree with care plan. Case discussed with patient, Dr. De La Rosa. Undiagnosed new problem with uncertain prognosis? @ -No Drug Therapy requiring intensive monitoring for toxicity (Heparin, Nitro, Insulin, Cardizem)? @ -No Were any procedures done? @ -Yes, I&D Diagnosis/symptom? @ -Abscess Acute, or Chronic, or Acute on Chronic? @ -Acute Uncomplicated (without systemic symptoms) or Complicated (systemic symptoms)? @ -Uncomplicated Side effects of treatment? @ -No Exacerbation, Progression, or Severe Exacerbation? @ -No Poses a threat to life or bodily function? How? (Chest pain, [place], [place], pneumonia, PE, COPD, DKA, ARF, appy, cholecystitis, CVA, Diverticulitis, Homicidal, Suicidal, threat to staff... and all critical care pts) @ -No Disposition Clinical Impression: Abscess Disposition: HOME SELF-CARE Condition: Stable Instructions (If sedation given, give patient instructions): Abscess (ED) Additional Instructions: Follow-up with PCP next 1 to 2 days. Complete full course of antibiotics. Ret urn to the ER for any new or worsening concerns. Prescriptions: Amoxic-Pot Clav 875-125Mg [Augmentin 875-125] 1 tab PO Q12HR #20 tab Sulfamethox-Tmp 800-160Mg [Bactrim Ds] 1 each PO Q12HR #20 tab Is patient prescribed a controlled substance at d/c from ED?: No Referrals: Mirna Burgos MD [Primary Care Provider] - 1-2 days Time of Disposition: 01:17
[2024-04-28] MEDS: AMOXIC-POT CLAV 875-125MG 1 EACH TAB PO STA (01:30)
[2024-04-28] MEDS: SULFAMETHOX-TMP 800-160MG 1 EACH TAB PO STA (01:31)
[2024-04-28 01:44] VITALS: BP 121/78; PULSE 68; RESP 22; TEMP 98.1
== END 2024-04-28 01:44 | disposition home or self-care (01) ==
LOC: EC 23:30
CPT/HCPCS: 56405; 99282

== ENCOUNTER 2024-08-23 08:58 | Day surgery (SDC) | payer MEDICARE ==
[2024-08-18 12:26] VITALS: BMI 26.0
[~2024-08-23 08:58] MED LIST: LACTATED RINGERS 1,000 ML IV SCH; LIDOCAINE 1% (10MG/ML) FOR IV START INTRADERMA PRN
[2024-08-23] MEDS: SODIUM CHLORIDE 0.9% 1,000 ML IV ONE (09:38)
[2024-08-23 09:54] VITALS: TEMP 97.1
[2024-08-23] MEDS ORDERED: PROPOFOL 10 MG/ML 20 ML VIAL IV ONE (10:23)
[2024-08-23] MEDS ORDERED: LIDOCAINE 1% INJ 10MG/ML (20 ML MDV) ONE (10:23)
--- NOTE | 2024-08-23 10:47 | P.PCN ---
Date of Procedure: 08/23/24 Procedure(s) Performed: BRIEF HISTORY: Patient is a 74-year-old pleasant white female scheduled for an elective colonoscopy as a part of evaluation change in bowel habits. PROCEDURE PERFORMED: Colonoscopy. PREOPERATIVE DIAGNOSIS: Change in bowel habits. IV sedation per Anesthesia. PROCEDURE: After informed consent was obtained, the patient, was brought into the endoscopy unit. IV sedation was administered by Anesthesia under continuous monitoring. Digital rectal examination was normal. Initially the Olympus CF-160 flexible video colonoscope was then inserted in the rectum, gradually advanced into the cecum without any difficulty. Careful examination was performed as the scope was gradually being withdrawn. Ileocecal valve and the appendiceal orifice were visualized and appeared normal. Prep was excellent. Mucosa of the cecum, ascending colon, transverse colon, descending colon, sigmoid colon, and rectum appeared normal. Retroflexion was performed in the rectum and no lesions were seen. The patient tolerated the procedure well. IMPRESSION: Normal-appearing colon from rectum to cecum with no evidence of colorectal neoplasia. RECOMMENDATIONS: Findings of this examination were discussed with the patient as well as her family. She was advised to be on a high-fiber diet and take fiber supplements on a regular basis.
[2024-08-23 11:22] VITALS: BP 154/79; PULSE 74; RESP 18
== END 2024-08-23 11:35 | disposition home or self-care (01) ==
LOC: ORWHC2ENDO 08:58
PROVIDERS: ATTEND Internal Medicine Gastroenterology
DX: K21.9 Gastro-esophageal reflux disease without esophagitis (principal); E78.5 Hyperlipidemia, unspecified; F41.9 Anxiety disorder, unspecified; Z88.6 Allergy status to analgesic agent; Z79.899 Other long term (current) drug therapy
CPT/HCPCS: 45378; J2003; J2704